=== PATIENT | female | born 1950 | race Caucasian/White ===

== ENCOUNTER 2019-09-17 15:27 | Emergency (ER) | payer OTHER ==
[~2019-09-17] VITALS: Ht 165.1 cm; Wt 76.7 kg
[~2019-09-17 15:27] MED LIST: ASPIR-LOW81 M1 PO; DUL5 PO; GLU1I IV; HUMI; LANTI; LIPTRUZET PO; TOP50 PO; XARELTO10 M1; [UNRECOGNIZED DRUG - CODE] IV; [UNRECOGNIZED DRUG - OTHER] PO
[2019-09-17 15:33] VITALS: Ht 165.1 cm; Wt 76.7 kg
[2019-09-17 17:56] VITALS: BP 168/58
== END 2019-09-17 17:56 | disposition home or self-care (01) ==
LOC: ED 15:27
DX: G51.0 Bell's palsy (principal); I11.0 Hypertensive heart disease with heart failure; I50.9 Heart failure, unspecified; E11.9 Type 2 diabetes mellitus without complications; E78.00 Pure hypercholesterolemia, unspecified; Z86.73 Personal history of transient ischemic attack (TIA), and cerebral infarction without residual deficits